=== PATIENT | female | born 1965 | race Caucasian/White ===

== ENCOUNTER 2017-12-24 05:46 | Outpatient (CLI) | payer OTHER, SELFPAY ==
--- NOTE | 2017-12-24 09:30 | DI.COMBO_ITS ---
SYMPTOM/DIAGNOSIS: F/U ABNL MAMMO, R92.8, 6 MO F/U MAMMOGRAMS AND LEFT BREAST ULTRASOUND: Mammograms were interpreted according to the usual protocol including computer analysis with CAD system, tomosynthesis and C view imaging. Comparison is made with prior examinations. Breast density, category D. There are multiple well circumscribed nodules in both breasts. The largest is seen in the right breast. Mammographically these nodules appear stable. No suspicious microcalcifications are seen. The skin and axilla are unremarkable. A left breast ultrasound was performed of the upper inner and outer quadrants. There are again seen several well circumscribed, hypoechoic, avascular nodules in the breast. No posterior acoustic enhancement or shadowing or blood flow is seen in any of these nodules. The nodules appear stable dating back to the mammogram from 12/14/2016. IMPRESSION: No definite evidence for malignancy. Yearly mammography is recommended. Category 2. The findings were discussed with the patient on the date of the examination. MQSA ASSESSMENT OF FINDINGS: Negative with benign findings. Category 2. Patient will receive a letter notifying them of these results. BI-RADS category D. The breasts are extremely dense, which lowers the sensitivity of mammography.
== END 2017-12-24 06:06 ==
PROVIDERS: PCP Family Medicine; Visit Provider Family Medicine
DX: Z12.31 Encounter for screening mammogram for malignant neoplasm of breast (principal); R92.8 Other abnormal and inconclusive findings on diagnostic imaging of breast; N60.82 Other benign mammary dysplasias of left breast
CPT/HCPCS: 76642; 77062; 77066; G0279

== ENCOUNTER 2018-07-18 10:43 | Outpatient (REF) | payer OTHER, SELFPAY ==
--- NOTE | 2018-07-18 08:55 | SKI_PTH ---
PATIENT: RASHID WALDEN LOC: [facility] U#:[id number] AGE/SX: 53/F ROOM: RE07/18/[address]: Aubrie Hutchins : 1965 BED: DIS: 07/18/2018 SPEC #: [id number] RECD: 07/18/18 12:45 STATUS: KISHAN RERuchi #: [id number] RAMÍREZ: 07/18/18 08:[address]: Aubrie Hutchins DEPT: Surgical Specimen RECD BY: Vivian Guthrie Tissues: 1 - SKIN BIOPSY(SHAVE/PUNCH) Procedures: SKIN LEVEL 4 Comments: [id number]
== END 2018-07-18 11:03 ==
LOC: NCHCN 10:43
PROVIDERS: PCP Family Medicine; Visit Provider Family Medicine
DX: L82.1 Other seborrheic keratosis (principal)
CPT/HCPCS: 88305